=== PATIENT | female | born 1975 | race Two or more races ===

== ENCOUNTER 2021-12-10 12:23 | Outpatient (CLI) | payer BC ==
--- NOTE | 2021-12-11 07:54 | Mammography Report ---
BILATERAL DIGITAL SCREENING MAMMOGRAM 3D/2D: 12/10/2021 CLINICAL: Baseline exam Routine screening. No prior exams were available for comparison. The tissue of both breasts is heterogeneously dense. T his may lower the sensitivity of mammography. No significant masses, calcifications, or other findings are seen in either breast. IMPRESSION: NEGATIVE There is no mammographic evidence of malignancy. A 1 year screening mammogram is recommended. This exam was interpreted at Station ID: [id number]. NOTE: For mammograms, a report in lay terms will be sent to the patient. Approximately 15% of breast malignancies will not be visualized mammographically. In the management of a palpable breast mass, a negative mammogram must not discourage biopsy of a clinically suspicious lesion. Electronically Signed By: Roosevelt snyder/rommel:12/10/2021 14:07:43 ACR BI-RADS Category 1: Negative 3341F PARENCHYMAL PATTERN: (D) - The breast(s) demonstrate(s) heterogeneously dense fibroglandular arnie avalos. BI-RADS CATEGORY: (1) - 1 RECOMMENDATION: (ANNUAL) - Recommend routine annual screening mammography. [id number] 1 year screening LATERALITY: (B)
== END 2021-12-10 12:24 | disposition home or self-care (01) ==
LOC: DI.N 12:23
DX: Z12.31 Encounter for screening mammogram for malignant neoplasm of breast (principal)

== ENCOUNTER 2022-03-18 16:04 | Outpatient (CLI) | payer BC ==
[2022-03-18 18:23] LABS: BACTERIAL VAGINOSIS DNA NEGATIVE (NEGATIVE); CANDIDA GLABRATA DNA NEGATIVE (NEGATIVE); CANDIDA GROUP DNA NEGATIVE (NEGATIVE); CANDIDA KRUSEI DNA NEGATIVE (NEGATIVE); TRICHOMONAS VAGINALIS DNA NEGATIVE (NEGATIVE)
== END 2022-03-18 16:05 | disposition home or self-care (01) ==
LOC: LAB.WC 16:04
PROVIDERS: ATTEND Obstetrics & Gynecology
DX: N76.0 Acute vaginitis (principal)
CPT/HCPCS: 81514

== ENCOUNTER 2022-05-04 13:13 | Outpatient (CLI) | payer BC ==
--- NOTE | 2022-05-04 17:44 | Ultrasound Report ---
PROCEDURE: Pelvic w/Transvaginal INDICATIONS: PELVIC PAIN TECHNIQUE: Real-time scanning was performed of the pelvic organs, with image documentation. Additional endovagi nal scanning was necessary due to incomplete visualization of the adnexal and endometrial structures by transabdominal scanning. COMPARISON: None. FINDINGS: Uterus: Uterus is anteverted and normal in size at 8.8 x 4.2 x 5.2 cm. The myometrium is heterogene ous. The endometrium measures 11.4 mm in combined thickness. 2 small fibroids are measured, each of which measures 9 mm in maximum diameter. There are multiple intramural in location. Ovaries: The right ovary measures 3.0 x 2.6 x 2.5 cm, with a calculated ovarian volume of 10.2 cc. The left ovary measures 2.1 x 1.7 x 2.1 cm, with a calculated ovarian volume of 5.1 cc. The ovaries have a normal sonographic appearance. There is a dominant right ovarian cyst measuring 2.2 cm in maxi mum diameter. There are less than 12 cysts in each ovary. There is bilateral intraovarian flow. No ad nexal masses are seen. Other: No pathologic free abdominal or pelvic fluid. IMPRESSION: 1. Small incidental uterine fibroids. 2. Otherwise unremarkable pelvic ultrasound. Reviewed by: Xavier Mahmood MD on 05/04/2022 5:43 PM PDT Approved by: Xavier Mahmood MD on 05/04/2022 5:43 PM PDT Station ID: [id number]
== END 2022-05-04 13:14 | disposition home or self-care (01) ==
LOC: DI 13:13
PROVIDERS: ATTEND Nurse Practitioner
DX: R10.2 Pelvic and perineal pain (principal); Z87.42 Personal history of other diseases of the female genital tract

== ENCOUNTER 2022-09-15 08:42 | Outpatient (CLI) | payer BC ==
[2022-09-15 12:00] LABS: HCT - HEMATOCRIT 35.9 % (37.0-47.0); HGB - HEMOGLOBIN 11.4 g/dL (12.0-16.0); MEAN CORPUSCULAR HGB CONC 31.8 g/dL (32.0-36.0); MEAN CORPUSCULAR VOLUME 94.5 fL (81.0-99.0); MEAN PLATELET VOLUME 9.9 fL (7.9-10.8); RED BLOOD COUNT 3.8 10^6/uL (4.20-5.40)
[2022-09-15 12:40] LABS: CHOLESTEROL 177 mg/dL; HDL CHOLESTEROL 88 mg/dL; LDL CHOLESTEROL,CALCULATED 79 mg/dL; LDL/HDL RATIO 0.9 (<4.4); TRIGLYCERIDES 48 mg/dL; VLDL CHOLESTEROL 10 mg/dL
[2022-09-15 12:43] LABS: THYROID STIMULATING HORMONE 3.34 uIU/mL (0.34-5.60)
[2022-09-15 12:45] LABS: FREE T4 (FREE THYROXINE) 0.78 ng/dL (0.58-1.64)
[2022-09-15 12:49] LABS: FERRITIN 5.5 ng/mL (11.0-306.8)
[2022-09-15 13:04] LABS: ESTIMATED AVERAGE GLUCOSE 103 mg/dL (70-100); HEMOGLOBIN A1c% 5.2 % (4.27-6.07)
== END 2022-09-15 08:43 | disposition home or self-care (01) ==
LOC: LAB.N 08:42
PROVIDERS: ATTEND Nurse Practitioner
DX: Z85.850 Personal history of malignant neoplasm of thyroid (principal); Z13.220 Encounter for screening for lipoid disorders; Z83.2 Family history of diseases of the blood and blood-forming organs and certain disorders involving the immune mechanism; Z13.1 Encounter for screening for diabetes mellitus
CPT/HCPCS: 36415; 80061; 82728; 83036; 83721; 84439; 84443; 85027

== ENCOUNTER 2023-02-11 13:43 | Emergency (ER) | payer BC ==
[2023-02-11] MEDS ORDERED: MORPHINE 2 MG/ML CARPUJECT IVP STA (14:24)
[2023-02-11] MEDS ORDERED: SODIUM CHLORIDE 0.9% 1,000 ML IV STA (14:24)
[2023-02-11] MEDS ORDERED: ONDANSETRON 4 MG/2 ML VIAL IVP STA (14:24)
--- NOTE | 2023-02-11 14:33 | ED Physician Documentation ---
PD HPI ABD PAIN - Stated complaint Stated Complaint: ABD PX - Chief complaint Chief Complaint: Abd Pain - History obtained from History obtained from: Patient - Additional information Additional information: Patient presents from home by private vehicle for generalized abdominal pain with nausea since eating breakfast this morning. Initially went to walk-in clinic, however she was bent over in pain and clinic referred her to the emergency department for further evaluation. Patient states the pain is worse in her upper abdomen, constant, associated with nausea. Has never had this before. Denies history of intra-abdominal surgeries Review of Systems Constitutional: denies: Fever, Chills Cardiac: denies: Chest pain / pressure, Palpitations Respiratory: denies: Dyspnea, Cough, Wheezing GI: reports: Abdominal Pain, Nausea. denies: Abdominal Swelling, Vomiting Musculoskeletal: denies: Neck pain, Back pain, Extremity pain Neurologic: denies: Generalized weakness, Focal weakness, Numbness PD PAST MEDICAL HISTORY - Present Medications Home Medications: Ambulatory Orders Medication Instructions Recorded Confirmed Dicyclomine [Bentyl] 1 - 2 tab PO QID PRN #20 cap 02/11/23 Metoclopramide [Reglan] 10 mg PO Q6H PRN #20 tablet 02/11/23 - Allergies Allergies/Adverse Reactions: Allergies Allergy/AdvReac Type Severity Reaction Status Date / Time No Known Drug Allergies Allergy Verified 09/28/22 09:36 PD ED PE NORMAL - Vitals Vital signs reviewed: Yes - General General: Alert and oriented X 3, Well developed/nourished - HEENT HEENT: Atraumatic - Cardiac Cardiac: RRR, Strong equal pulses - Respiratory Respiratory: No respiratory distress, Clear bilaterally - Abdomen Abdomen: Normal bowel sounds, Non distended, Other (generalized tenderness to palpation. Negative jewell sign. No rebound, no guarding) - Derm Derm: Normal color, Warm and dry, No rash - Extremities Extremities: No deformity, No tenderness to palpate, Normal ROM s pain - Neuro Neuro: Alert and oriented X 3, physicians and surgeons 2-12 intact, No motor deficit, Normal speech - Psych Psych: Normal mood, Normal affect Results - Vitals Vitals: Oxygen O2 Source Room air - Labs Labs: Laboratory Tests 02/11/23 02/11/23 02/11/23 14:29 14:29 15:15 WBC 10.3 RBC 4.13 L Hgb 13.1 Hct 39.4 MCV 95.4 MCH 31.7 H MCHC 33.2 RDW 12.7 Plt Count 350 MPV 9.0 Neut # (Auto) 8.9 H Lymph # (Auto) 0.9 L Cocke # (Auto) 0.4 Eos # (Auto) 0.0 Baso # (Auto) 0.1 Absolute Nucleated RBC 0.00 Nucleated RBC % 0.0 Sodium 135 Potassium 3.3 L Chloride 101 Carbon Dioxide 24 Anion Gap 10.0 BUN 14 Creatinine 0.9 Estimated GFR (MDRD) 67 L Glucose 143 H Calcium 10.0 Total Bilirubin 0.5 AST 18 ALT 14 Alkaline Phosphatase 48 Total Protein 8.5 Albumin 4.9 Globulin 3.6 Albumin/Globulin Ratio 1.4 Lipase 20 Urine Color YELLOW Urine Clarity CLOUDY Urine pH 8.5 H Ur Specific [place] 1.015 Urine Protein NEGATIVE Urine Glucose (UA) NEGATIVE Urine Ketones 15 H Urine Occult Blood NEGATIVE Urine Nitrite NEGATIVE Urine Bilirubin NEGATIVE Urine Urobilinogen 0.2 (NORMAL) Ur Leukocyte Esterase NEGATIVE Urine RBC None Seen Urine WBC 0-3 Ur Squamous Epith Cells FEW Squamous Amorphous Sediment Marked Urine Bacteria Few Ur Microscopic Review INDICATED Urine Culture Comments NOT INDICATED Urine HCG, Qual 02/11/23 15:16 WBC RBC Hgb Hct MCV MCH MCHC RDW Plt Count MPV Neut # (Auto) Lymph # (Auto) Cocke # (Auto) Eos # (Auto) Baso # (Auto) Absolute Nucleated RBC Nucleated RBC % Sodium Potassium Chloride Carbon Dioxide Anion Gap BUN Creatinine Estimated GFR (MDRD) Glucose Calcium Total Bilirubin AST ALT Alkaline Phosphatase Total Protein Albumin Globulin Albumin/Globulin Ratio Lipase Urine Color Urine Clarity Urine pH Ur Specific [place] Urine Protein Urine Glucose (UA) Urine Ketones Urine Occult Blood Urine Nitrite Urine Bilirubin Urine Urobilinogen Ur Leukocyte Esterase Urine RBC Urine WBC Ur Squamous Epith Cells Amorphous Sediment Urine Bacteria Ur Microscopic Review Urine Culture Comments Urine HCG, Qual NEGATIVE PD Medical Decision Making - ED course Complexity details: reviewed results, re-evaluated patient, considered differential, d/w patient ED course: Nontoxic-appearing patient with abdominal pain and nausea after eating food. Abdomen is generally tender to deep palpation, patient reports that the pain is worst in her upper abdomen, however negative Ejwell sign. No rebound or guarding. Will give pain medications, nausea medications, will order labs and CT imaging. Laboratory work is unremarkable. Liver enzymes reviewed, normal. Pending CT imaging. CT imaging is reviewed, possible slow transit through small intestine, however no acute surgical abnormalities. Patient resting comfortably in bed, pain is well controlled, abdomen is soft and benign. I explained to the patient that I do not know the cause of her abdominal pain, however I recommended decreasing the size of her meals and will trial Bentyl and Reglan since Reglan is a promotility agent. Patient states that she is in line for a GI appointment, however does not for several months. She will try the medications as well as smaller meals to see if it improves her symptoms. PCP follow-up advised. Departure - Departure Disposition: Home, Self Care Clinical Impression: Nausea Abdominal pain Qualifiers: Abdominal location: generalized Qualified Code(s): R10.84 - Generalized abdominal pain Condition: Stable Instructions: Abdominal Pain Prescriptions: Dicyclomine [Bentyl] 1 - 2 tab PO QID PRN #20 cap PRN Reason: Abdominal Pain Metoclopramide [Reglan] 10 mg PO Q6H PRN #20 tablet PRN Reason: nausea or headache Forms: PCP List Discharge Date/Time: 02/11/23 18:13
[2023-02-11 14:37] LABS: BASOPHILS # (AUTO) 0.1 10^3/uL (0.0-0.1); BASOPHILS % (AUTO) 0.5 %; EOSINOPHILS % (AUTO) 0.1 %; HCT - HEMATOCRIT 39.4 % (37.0-47.0); HGB - HEMOGLOBIN 13.1 g/dL (12.0-16.0); LYMPHOCYTES # (AUTO) 0.9 10^3/uL (1.5-3.5); LYMPHOCYTES % (AUTO) 8.6 %; MEAN CORPUSCULAR HEMOGLOBIN 31.7 pg (27.0-31.0); MEAN CORPUSCULAR HGB CONC 33.2 g/dL (32.0-36.0); MEAN CORPUSCULAR VOLUME 95.4 fL (81.0-99.0); MONOCYTES # (AUTO) 0.4 10^3/uL (0.0-1.0); MONOCYTES % (AUTO) 3.8 %; NEUTROPHILS # (AUTO) 8.9 10^3/uL (1.5-6.6); NEUTROPHILS % (AUTO) 86.7 %; PLT - PLATELET COUNT 350 10^3/uL (130-450); RED BLOOD COUNT 4.13 10^6/uL (4.20-5.40); RED CELL DISTRIBUTION WIDTH 12.7 % (12.0-15.0); WHITE BLOOD COUNT 10.3 x10^3/uL (4.8-10.8)
[2023-02-11 14:55] LABS: ALBUMIN 4.9 g/dL (3.2-5.5); ALBUMIN/GLOBULIN RATIO 1.4 (1.0-2.2); BILIRUBIN,TOTAL 0.5 mg/dL (0.2-1.0); CREATININE 0.9 mg/dL (0.6-1.3); POTASSIUM 3.3 mmol/L (3.5-4.5); TOTAL PROTEIN 8.5 g/dL (6.4-8.9)
[2023-02-11 15:32] LABS: BILIRUBIN,URINE NEGATIVE (NEGATIVE); GLUCOSE, URINE (UA) NEGATIVE (NEGATIVE); KETONES,URINE (UA) 15 mg/dL (NEGATIVE); LEUKOCYTE ESTERASE, URINE NEGATIVE (NEGATIVE); NITRITE,URINE NEGATIVE (NEGATIVE); OCCULT BLOOD,URINE NEGATIVE (NEGATIVE); PH,URINE 8.5 PH (5.0-7.5); PROTEIN,URINE NEGATIVE (NEGATIVE); UROBILINOGEN,URINE 0.2 (NORMAL) E.U./dL (NORMAL)
[2023-02-11 15:35] LABS: CLARITY,URINE CLOUDY (CLEAR)
[2023-02-11 15:47] LABS: BACTERIA,URINE Few /HPF (None Seen); RBC,URINE None Seen /HPF (0-5); SQUAMOUS EPITHELIAL CELL,UR FEW Squamous (<= Few); WBC,URINE 0-3 /HPF (0-5)
[2023-02-11 15:48] LABS: AMORPHOUS SEDIMENT,UR Marked /LPF
[2023-02-11 16:01] LABS: HCG UR QUAL NEGATIVE
[2023-02-11] MEDS ORDERED: KETOROLAC 15 MG/ML VIAL IVP STA (17:08)
[2023-02-11 17:23] VITALS: BP 123/78
--- NOTE | 2023-02-11 17:33 | CT Report ---
PROCEDURE: ABDOMEN/PELVIS W INDICATIONS: upper abd pain, N/V CONTRAST: 100ml omni 300 TECHNIQUE: After the administration of IV contrast, 5 mm thick sections acquired from the diaphragms to the symp hysis. 5 mm thick coronal and sagittal reformats were acquired. For radiation dose reduction, the f ollowing was used: automated exposure control, adjustment of mA and/or kV according to patient size. COMPARISON: Correlation is made with prior abdominal ultrasound, 05/04/2022. FINDINGS: Image quality: Excellent. Lung bases and heart: Unremarkable. Liver: No solid mass. Gallbladder and biliary tree: Within normal limits. Spleen: No splenomegaly. Pancreas: No pancreatic ductal dilation. Adrenals: No adrenal nodule. Kidneys and ureters: No hydronephrosis. No renal cystic lesion which requires follow up. No solid mas s. Bowel and peritoneum: Within the distal small bowel, there is forming stool seen. This is commonly se en in patients with poor small bowel motility. The more proximal small bowel demonstrates normal levi genesis, without dilatation. No significant colonic abnormality is identified. A normal appendix is seen on series 5 image 18. No significant gastric abnormality is seen. Lymph nodes: No central or retroperitoneal adenopathy. Vessels: No infrarenal aortic aneurysm. PELVIS Reproductive organs: The uterus demonstrates an unremarkable appearance for age. No adnexal masses a re seen. Bladder: No abnormal wall thickening, accounting for underdistension. Pelvic lymph nodes: No pelvic adenopathy by size criteria. Bones: No aggressive osseous abnormality. Focal L5-S1 degenerative change is seen. Other: No significant ventral or inguinal hernia. IMPRESSION: Formation of stool within the distal small bowel, without melissa dilatation. This is not frankly patho logic, yet it is commonly seen in patients with poor small bowel motility. No dilated loops of small bowel can be seen. Normal appendix Reviewed by: Joaquín Galaviz MD on 02/11/2023 4:31 PM AKDT Approved by: Joaquín Galaviz MD on 02/11/2023 4:31 PM AKDT Station ID: [id number]
[2023-02-11] MEDS ORDERED: iohexoL-300 100 ML VIAL IVP ONE (20:59)
== END 2023-02-11 18:13 | disposition home or self-care (01) ==
LOC: ED 13:43
DX: R10.84 Generalized abdominal pain (principal); R11.0 Nausea
CPT/HCPCS: 36415; 74177; 80053; 81001; 81025; 83690; 85025; 96374; 96375; 99283; 99284; Q9967; 81003; 87086

== ENCOUNTER 2024-02-29 11:24 | Outpatient (CLI) | payer BC ==
--- NOTE | 2024-03-02 15:35 | Mammography Report ---
BILATERAL DIGITAL SCREENING MAMMOGRAM 3D/2D: 02/29/2024 CLINICAL: Routine screening. Comparison is made to exam dated: 12/10/2021 mammogram - [facility]. Both breasts are heterogeneously dense, which may obscure small masses (category c / 51-75% glandular tissue). No significant masses, calcifications, or other findings are seen in either breast. There has been no significant interval change. IMPRESSION: NEGATIVE There is no mammographic evidence of malignancy. A 1 year screening mammogram is recommended. Based on the Tyrer Cuzick model (a risk assessment model) the patient's lifetime risk is 14.4% and he r 10 year risk is 3.0%. According to the ACR, ACS, and NCCN guidelines, an annual breast MRI exam uriah ng with mammogram is recommended if the patient's lifetime risk is 20% or greater. This exam was interpreted at Station ID: [id number]. NOTE: For mammograms, a report in lay terms will be sent to the patient. Approximately 15% of breast malignancies will not be visualized mammographically. In the management of a palpable breast mass, a negative mammogram must not discourage biopsy of a clinically suspicious lesion. Electronically Signed By: Agustina Bryant M.D., Ph.D. eb/rommel:03/01/2024 12:05:53 letter sent: No_Letter ACR BI-RADS Category 1: Negative 3341F PARENCHYMAL PATTERN: (D) - The breast(s) demonstrate(s) heterogeneously dense fibroglandular arnie avalos. BI-RADS CATEGORY: (1) - 1 RECOMMENDATION: (ANNUAL) - Recommend routine annual screening mammography. [id number] 1 year screening LATERALITY: (B)
== END 2024-02-29 11:25 | disposition home or self-care (01) ==
LOC: DI.N 11:24
DX: Z12.31 Encounter for screening mammogram for malignant neoplasm of breast (principal); R92.333 Mammographic heterogeneous density, bilateral breasts

== ENCOUNTER 2024-04-04 13:49 | Outpatient (CLI) | payer BC ==
[2024-04-04 13:56] LABS: HCT - HEMATOCRIT 37.7 % (37.0-47.0); HGB - HEMOGLOBIN 12.2 g/dL (12.0-16.0); MEAN CORPUSCULAR HEMOGLOBIN 31.9 pg (27.0-31.0); MEAN CORPUSCULAR HGB CONC 32.4 g/dL (32.0-36.0); MEAN CORPUSCULAR VOLUME 98.4 fL (81.0-99.0); MEAN PLATELET VOLUME 8.8 fL (7.9-10.8); RED BLOOD COUNT 3.83 10^6/uL (4.20-5.40); RED CELL DISTRIBUTION WIDTH 13.3 % (12.0-15.0); WHITE BLOOD COUNT 5.3 x10^3/uL (4.8-10.8)
[2024-04-04 20:35] LABS: ESTIMATED AVERAGE GLUCOSE 91 mg/dL (70-100); HEMOGLOBIN A1c% 4.8 % (4.27-6.07)
== END 2024-04-04 13:50 | disposition home or self-care (01) ==
LOC: LAB 13:49
PROVIDERS: ATTEND Obstetrics & Gynecology
DX: E61.1 Iron deficiency (principal); R73.03 Prediabetes
CPT/HCPCS: 36415; 83036; 85027